=== PATIENT | female | born 2000 | race Hispanic/Latino ===

== ENCOUNTER 2024-10-04 20:48 | Emergency (ER) | payer OTHER, SELFPAY ==
[2024-10-04 21:35] LABS: Absolute Lymphocytes (CBC) 0.9 K/uL (0.7-4.9); Absolute Monocytes 0.3 K/uL (0.1-1.3); Absolute Neutrophil 4.1 K/uL (1.8-8.0); Basophils % 0.2 % (0-1.3); Eosinophils % 0.5 % (0-4.4); Hematocrit 30.9 % (36.0-45.0); Hemoglobin 10.4 g/dL (12.0-15.0); Lymphocytes % 16.2 % (15.3-44.8); MCH 28.1 pg (27.0-35.0); MCHC 33.5 g/dL (32.0-36.0); MCV 83.8 fL (80-100); MPV 9.1 fL (7.6-11.3); Monocytes % 6.4 % (3.3-12.3); Neutrophils % 76.7 % (41.7-73.7); Platelets 187 thou/uL (152-406); RBC Red Blood Cell Count 3.69 M/uL (3.86-4.86); Red Cell Distribution Width 12.1 % (12.1-15.2)
[2024-10-04 21:43] LABS: Specific Gravity 1.017 (1.005-1.030); Sqamous Epithelial <5 /HPF (None Seen); Urine Bacteria None Seen /HPF (<20); Urine Bilirubin NEGATIVE (Negative); Urine Blood 1+ (Negative); Urine Clarity Clear (Clear); Urine Color Light-Yellow (Yellow); Urine Culture Reflex Order NOT NEEDED; Urine Glucose NEGATIVE (Negative); Urine Ketones NEGATIVE (Negative); Urine Microscopic Reflex YN ORDER UMIC; Urine Mucus Slight /HPF (None Seen); Urine Nitrite NEGATIVE (Negative); Urine Protein NEGATIVE (Negative); Urine Urobilinogen Normal (Normal); Urine WBC <5 /HPF (<5)
[2024-10-04 21:51] LABS: Albumin 3.8 g/dL (3.4-5.0); Albumin/Globulin Ratio 0.8 (1.1-1.8); Anion Gap 8.6 mEq/L (5.0-15.0); Bilirubin Total 0.5 mg/dL (0.2-1.0); Globulin 4.5 g/dL (2.3-3.5); Potassium 3.6 mEq/L (3.5-5.1); Protein, Total 8.3 g/dL (6.4-8.2)
--- NOTE | 2024-10-04 22:50 | ER ---
Nurse's Notes [facility] Name: Rebeca Kidd Age: 24 yrs Sex: Female : 2000 Arrival Date: 10/04/2024 Time: 20:48 Bed 20 Private MD: Diagnosis: Encounter for supervision of normal first , first trimester Presentation: 10/04 21:02 Chief complaint: Patient states: intermittent left flank pain that started on Monday, me1 8/10 cramping. States pain is worse after eating and she gets relief after urinating. Coronavirus screen: Vaccine status: Patient reports being unvaccinated. Ebola Screen: No symptoms or risks identified at this time. Initial Sepsis Screen: Does the patient meet any 2 criteria? HR > 90 bpm. Does the patient have a suspected source of infection? No. Patient's initial sepsis screen is negative. Risk Assessment: Do you want to hurt yourself or someone else? Patient reports no desire to harm self or others. Onset of symptoms was September 30, 2024. 21:02 Method Of Arrival: Ambulatory nj1 21:02 Acuity: CHELA 3 me1 Triage Assessment: 21:04 General: Appears in no apparent distress. well groomed, well developed, well nourished, me1 Behavior is calm, cooperative, appropriate for age. Pain: Complains of pain in left leg and left low back Pain does not radiate. Pain currently is 8 out of 10 on a pain scale. Quality of pain is described as crampy, Pain began 2-3 days ago. Is continuous. EENT: No signs and/or symptoms were reported regarding the EENT system. Neuro: Level of Consciousness is awake, alert, obeys commands, Oriented to person, place, time, situation, Appropriate for age. Cardiovascular: Patient's skin is warm and dry. Respiratory: Airway is patent Respiratory effort is even, unlabored, Respiratory pattern is regular, symmetrical. GI: No signs and/or symptoms were reported involving the gastrointestinal system. : Reports pain in left flank(s). Derm: Skin is intact, is healthy with good turgor, Skin is pink, warm \T\ dry. Musculoskeletal: Reports pain in left leg and left low back. 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 - Infectious Disease History:: Denies. - Social history:: Smoking status: Patient denies any tobacco usage or history of. Screenin:10 [facility] ED Fall Risk Assessment (Adult) History of falling in the last 3 months, bp including since admission No falls in past 3 months (0 pts) Confusion or Disorientation No (0 pts) Intoxicated or Sedated No (0 pts) Impaired Gait Yes (1 pt) Mobility Assist Device Used No (0 pt) Altered Elimination No (0 pt) Score/Fall Risk Level 0 - 2 = Low Risk Oriented to surroundings, Maintained a safe environment, Hourly rounding (assess needs \T\ fall precautionary measures) done. Abuse screen: Denies threats or abuse. Nutritional screening: No deficits noted. Tuberculosis screening: No symptoms or risk factors identified. Assessment: 21:10 General: Appears in no apparent distress. comfortable, Behavior is calm, cooperative, bp appropriate for age. 21:10 Pain: Complains of pain in abdomen Pain radiates to left leg Pain currently is 7 out of bp 10 on a pain scale. Quality of pain is described as aching. Neuro: Level of Consciousness is awake, alert, obeys commands, Oriented to person, place, time. Cardiovascular: Heart tones S1 S2 Capillary refill < 3 seconds Patient's skin is warm and dry. Rhythm is sinus rhythm. Respiratory: Airway is patent Trachea midline Respiratory effort is even, unlabored, Respiratory pattern is regular, symmetrical. GI: Abdomen is flat, non-distended, Abd is soft and non tender Reports cramping, Pain is 7 out of 10 on a pain scale. : No signs and/or symptoms were reported regarding the genitourinary system. EENT: No signs and/or symptoms were reported regarding the EENT system. Derm: No deficits noted. Musculoskeletal: Circulation, motion, and sensation intact. Range of motion: intact in all extremities. 22:30 Reassessment: Patient and/or family updated on plan of care and expected duration. Pain rg5 level reassessed. Patient is alert, oriented x 3, equal unlabored respirations, skin warm/dry/pink. Vital Signs: 21:02 BP 142 / 82; Pulse 105; Resp 17; Temp 98.4; Pulse Ox 100% ; Weight 70.31 kg; Height 5 me1 ft. 5 in. ; Pain 8/10; 21:10 BP 122 / 74; Pulse 99; Resp 18; Pulse Ox 100% on R/A; Pain 7/10; bp 22:30 BP 127 / 99; Pulse 98; Resp 19; Pulse Ox 99% on R/A; rg5 21:02 Body Mass Index 25.79 (70.31 kg, 165.1 cm) me1 21:02 Pain Scale: Adult me1 21:10 Pain Scale: Adult bp ED Course: 20:54 Patient arrived in ED. ra3 20:55 [facility] Stevens [facility] sb4 20:55 José Miguel Morales MD is Attending Physician. sb4 20:56 Armaan Bonner, RN is Primary Nurse. bp 21:04 Triage completed. me1 21:04 Arm band placed on Patient placed in an exam room. me1 21:10 Patient has correct armband on for positive identification. Bed in low position. Side bp rails up X 1. Adult w/ patient. Door closed. Noise minimized. Warm blanket given. Verbal reassurance given. 21:10 No provider procedures requiring assistance completed. Inserted saline lock: 20 gauge bp in right antecubital area, using aseptic technique. Blood collected. Flushed with 10 mL NS. 22:54 Provided Education on: POST ER CARE. rg5 23:00 IV discontinued, bleeding controlled, No redness/swelling at site. Pressure dressing rg5 applied. Administered Medications: No medications were administered Medication: 21:10 VIS not applicable for this client. bp Outcome: 22:49 Discharge ordered by . sb4 23:00 Discharged to home ambulatory, rg5 23:00 Condition: stable 23:00 Discharge instructions given to patient, 23:01 Patient left the ED. rg5 Signatures: Armaan Bonner, RN RN bp Eleanor Stevens PA-C PA-C sb4 Daya Leong RN RN me1 Sade Iniguez ra3 Vinod Burnett RN RN rg5
--- NOTE | 2024-10-04 22:50 | EDPHYS ---
Physician Documentation [facility] Name: Rebeca Kidd Age: 24 yrs Sex: Female : 2000 Arrival Date: 10/04/2024 Time: 20:48 Bed 20 Private MD: ED Physician José Miguel Morales HPI: 10/04 21:03 This 24 yrs old Female presents to ER via Unassigned with complaints of Flank sb4 Pain - Left. 21:04 The patient complains of pain in the left low back. The pain radiates to the left leg. sb4 Onset: The symptoms/episode began/occurred yesterday. Modifying factors: The symptoms are alleviated by nothing. the symptoms are aggravated by nothing. patient presents with vague symptoms, lower abdominal cramping, left low back pain that radiates down her left side. states the pain worsens after eating, feels better after urinating. has not had a menstrual cycle since July. states there was some blood when she wiped today. 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 - Infectious Disease History:: Denies. - Social history:: Smoking status: Patient denies any tobacco usage or history of. ROS: 21:04 Constitutional: Negative for fever, chills, and weight loss, sb4 21:04 Back: Positive for flank pain, on the left, 21:04 All other systems are negative, Exam: 21:04 Constitutional: This is a well developed, well nourished patient who is awake, alert, sb4 and in no acute distress. Head/Face: Normocephalic, atraumatic. Eyes: Extra-ocular motions intact. Periorbital areas with no swelling, redness, or edema. ENT: Mucous membranes moist. Cardiovascular: Regular rate and rhythm with a normal S1 and S2. Respiratory: No increased work of breathing, no retractions or nasal flaring. Abdomen/GI: Soft, non-tender, no distension. Back: No spinal tenderness. No costovertebral tenderness. Full range of motion. Skin: Warm, dry with normal turgor. Normal color with no rashes, no lesions, and no evidence of cellulitis. MS/ Extremity: Pulses equal, no cyanosis. Neurovascular intact. Full, normal range of motion. 21:04 Special observations: complaints out of proportion to exam, Vital Signs: 21:02 BP 142 / 82; Pulse 105; Resp 17; Temp 98.4; Pulse Ox 100% ; Weight 70.31 kg; Height 5 me1 ft. 5 in. ; Pain 8/10; 21:10 BP 122 / 74; Pulse 99; Resp 18; Pulse Ox 100% on R/A; Pain 7/10; bp 22:30 BP 127 / 99; Pulse 98; Resp 19; Pulse Ox 99% on R/A; rg5 21:02 Body Mass Index 25.79 (70.31 kg, 165.1 cm) me1 21:02 Pain Scale: Adult me1 21:10 Pain Scale: Adult bp MDM: 20:55 Medical Screening Exam initiated sb4 12 00:00 Data reviewed: vital signs, nurses notes, lab test result(s), and as a result, I will sb4 discharge patient. Counseling: I had a detailed discussion with the patient and/or guardian regarding the historical points, exam findings, and any diagnostic results supporting the discharge/admit diagnosis, lab results, the need for outpatient follow up, an OB/Gyne specialist, to return to the emergency department if symptoms worsen or persist or if there are any questions or concerns that arise at home. 12 21:02 Order name: CBC with Diff; Complete Time: 21:48 sb4 12 21:02 Order name: CMP; Complete Time: 22:42 sb4 12 21:02 Order name: Lipase; Complete Time: 22:42 sb4 12 21:02 Order name: Test, Urine; Complete Time: 21:48 sb4 12 21:02 Order name: Urinalysis w/ reflexes; Complete Time: 21:48 sb4 12 21:53 Order name: HCG, Quantitative; Complete Time: 22:42 EDMS 12 21:02 Order name: IV Saline Lock; Complete Time: 21:31 sb4 12 21:02 Order name: Labs collected and sent; Complete Time: 21:31 sb4 Administered Medications: No medications were administered Disposition: 19:29 Co-signature as Attending Physician, José Miguel Morales MD I agree with the assessment sp4 and plan of care. I reviewed the patient's care provided by the Advanced Practice Provider and agree with the diagnosis and treatment plan. Disposition Summary: 10/04/24 22:49 Discharge Ordered Notes: Location: Home sb4 Problem: new sb4 Symptoms: are unchanged sb4 Condition: Stable sb4 Diagnosis - Encounter for supervision of normal first , first trimester sb4 Followup: sb4 - With: Private Physician - When: 1 week - Reason: Recheck today's complaints, Re-evaluation by your physician Discharge Instructions: - Discharge Summary Sheet sb4 - Care sb4 - Back Pain in sb4 - First Trimester of , [id number] sb4 - Abdominal Pain During , [id number] sb4 Forms: - Patient Portal Instructions sb4 - Leadership Thank You Letter sb4 - Work release form me1 Signatures: Dispatcher [employer] EDEleanor Treviño PA-C GUERRERO sb4 José Miguel Morales MD MD sp4 Daya Leong RN RN me1 Corrections: (The following items were deleted from the chart) 10/04 21:03 21:03 CBC+H.LAB.BRZ ordered. EDMS EDMS 21:03 21:03 COMPREHENSIVE METABOLIC PANEL+C.LAB.BRZ ordered. EDMS EDMS 21:03 21:03 LIPASE+C.LAB.BRZ ordered. EDMS EDMS 21:03 21:03 Test, Urine+UC.LAB.BRZ ordered. EDMS EDMS 21:03 21:03 Urinalysis+U.LAB.BRZ ordered. EDMS EDMS 21:50 21:49 QUANTITATIVE HCG+C.LAB.BRZ ordered. EDMS EDMS
[2024-10-05 02:21] VITALS: TEMP 98.4
[2024-10-05 02:27] VITALS: BP 127/99; O2SAT 99
== END 2024-10-04 23:01 | disposition home or self-care (01) ==
LOC: ER 20:48
DX: Z34.01 Encounter for supervision of normal first pregnancy, first trimester (principal)
CPT/HCPCS: 36415; 80053; 81001; 81025; 83690; 84702; 85025; 99284